=== PATIENT | male | born 1990 | race African-American/Black ===

== ENCOUNTER 2021-03-12 04:28 | Emergency (ER) | payer SELFPAY ==
[~2021-03-12] VITALS: Ht 165.1 cm; Wt 76.0 kg
[2021-03-12 04:34] VITALS: BP 114/87
[2021-03-12] MEDS ORDERED: IBUPROFEN 600MG TABLET PO STA (04:57)
[2021-03-12 05:20] LABS: CLARITY URINE CLEAR (CLEAR); COLOR URINE DK YELLOW (YELLOW); KETONES URINE TRACE (NEGATIVE); LEUKOCYTE ESTERASE URINE 1+ (NEGATIVE); NITRITE URINE NEGATIVE (NEGATIVE); OCCULT BLOOD URINE NEGATIVE (NEGATIVE); PROTEIN URINE TRACE (NEGATIVE); SPECIFIC GRAVITY URINE 1.033 (1.005-1.030)
[2021-03-12] MEDS ORDERED: DOXY-326 PO (06:00)
[2021-03-12] MEDS ORDERED: NAPR-681 PO (06:00)
[2021-03-12] MEDS ORDERED: LIDOCAINE HCL 1% 20ML VIAL (Pyxis) INJ INFIL ONE (06:00)
[2021-03-12] MEDS ORDERED: CEFTRIAXONE SODIUM 500 MG/VIAL IM ONE (06:00)
== END 2021-03-12 06:14 | disposition home or self-care (01) ==
LOC: ER 04:28
DX: N34.2 Other urethritis (principal); N43.3 Hydrocele, unspecified; N50.812 Left testicular pain; N50.811 Right testicular pain; J45.909 Unspecified asthma, uncomplicated
CPT/HCPCS: 76870; 81003; 93976; 96372; 99284; J0696; J3490